=== PATIENT | female | born 1935 | race Caucasian/White ===

== ENCOUNTER 2016-05-04 09:17 | Emergency (ER) | payer OTHER, MEDICARE ==
[~2016-05-04] VITALS: Ht 167.6 cm; Wt 77.1 kg
[~2016-05-04 09:17] MED LIST: ATENOLOL; DIOVAN
[2016-05-04 09:22] VITALS: BP 169/81; PULSE 81; RESP 16; TEMP 98.7; O2SAT 97
--- NOTE | 2016-05-04 09:22 | NUR ---
Patient to ER bed 06 to gown for evaluation. Side rails up.
--- NOTE | 2016-05-04 09:27 | NUR ---
Dr. Cardona at bedside for evaluation
[2016-05-04] MEDS ORDERED: TRIAMCINOLONE ACETONIDE 40 MG/ML IM ONE (09:45)
[2016-05-04] MEDS ORDERED: LIDOCAINE 1% 10 MG/ML, 20 ML MDV INJ ONE (09:45)
--- NOTE | 2016-05-04 10:58 | NUR ---
Medicated for pain per MD orders. Pt tolerated well.
[2016-05-04] MEDS ORDERED: KETOROLAC TROMETHAMINE 30 MG VIAL IM ONE (11:00)
[2016-05-04 11:30] VITALS: BP 141/81; PULSE 88; RESP 16; TEMP 98.2; O2SAT 100
--- NOTE | 2016-05-04 11:30 | NUR ---
Patient given written and verbal discharge instructions and verbalizes understanding. ER MD DR. SONI discussed with patient the results and treatment provided. Patient in stable condition. ID arm band removed. Rx of FLEXERIL given. Patient educated on pain management and to follow up with PMD. Pain Scale 0/10 Opportunity for questions Povided and answered.
== END 2016-05-04 11:30 | disposition home or self-care (01) ==
LOC: SED 09:17
DX: M70.62 Trochanteric bursitis, left hip (principal); M54.42 Lumbago with sciatica, left side; I10 Essential (primary) hypertension; Z86.79 Personal history of other diseases of the circulatory system; Y93.9 Activity, unspecified
CPT/HCPCS: 20610; 72100; 96372; 99284; J1885; J2001; J3301

== ENCOUNTER 2016-06-22 09:12 | Emergency (ER) | payer OTHER, MEDICARE ==
[~2016-06-22] VITALS: Ht 167.6 cm; Wt 77.1 kg
[2016-06-22 09:14] VITALS: BP_SYST 186
--- NOTE | 2016-06-22 09:14 | NUR ---
Placed in room 06. Placed on campus monitor, blood pressure machine and pulse oximeter. To gown for exam. Side rails up. Report given to KYLIE Travis.
--- NOTE | 2016-06-22 09:22 | NUR ---
Dr. Tirado at bedside for evaluation
[2016-06-22] MEDS ORDERED: ATOR10TA68 PO (09:38)
[2016-06-22] MEDS ORDERED: ATEN50TA PO (09:38)
[2016-06-22] MEDS ORDERED: VALS1TAB76 PO (09:38)
--- NOTE | 2016-06-22 09:38 | NUR ---
Medication reconciliation completed with information provided by patient. Any prior medication reconciliation on file was reviewed and corrected.
--- NOTE | 2016-06-22 09:39 | NUR ---
Received Pt in bed 6. Pt c/o generalized weakness, muscle aches, SOB x1 week. Pt stated she has a Hx of HTN and asthma. O2 sat 100% room air. Lung sounds ausculated, lung sounds clear throughout all lobes. Dry hacking cough noted. Pt denies any sputum. Bilateral ankle non pitting edema noted. Pt denies chest pain. Pt stated she has not taken any medications to relieve symptoms.
--- NOTE | 2016-06-22 09:40 | NUR ---
Pt transported to radiology via gurney.
--- NOTE | 2016-06-22 10:02 | NUR ---
Pt back from radiology. Assistenced Pt to the bathroom for a UA collection. Gait steady but weak. Informed Pt to push the call light if Pt needs assitance in the bathroom. pt verbalized understanding.
[2016-06-22 10:08] LABS: BASOPHILS # (AUTO) 0.1 K/uL (0.0-0.2); BASOPHILS % (AUTO) 0.7 % (0.0-2.0); EOSINOPHILS # (AUTO) 0.2 K/uL (0.0-0.4); EOSINOPHILS % (AUTO) 1.7 % (0.0-4.0); LYMPHOCYTES # (AUTO) 0.7 K/uL (1.0-5.5); LYMPHOCYTES % (AUTO) 7.9 % (20.5-51.5); MEAN CORPUSCULAR HEMOGLOBIN 31 pg (27-31); MEAN CORPUSCULAR HGB CONC 33 % (32-36); MEAN CORPUSCULAR VOLUME 92 fL (79.0-98.0); MONOCYTES # (AUTO) 0.8 K/uL (0.0-1.0); MONOCYTES % (AUTO) 8.6 % (1.7-9.3); NEUTROPHILS # (AUTO) 7.5 K/uL (1.8-7.7); NEUTROPHILS % (AUTO) 81.1 % (40.0-70.0); PLATELET COUNT (AUTO) 362 K/uL (130-430); RED BLOOD CELL COUNT(AUTO) 4.56 MIL/uL (4.2-6.2); RED CELL DISTRIBUTION WIDTH 13.2 % (9.0-15.0); WHITE BLOOD COUNT (AUTO) 9.3 K/uL (4.8-10.8)
[2016-06-22 10:10] LABS: INR 1.1 (0.8-1.2); PROTHROMBIN TIME 11.6 SECS (9.5-12.5)
[2016-06-22 10:13] LABS: BILIRUBIN,URINE NEGATIVE (NEGATIVE); BLOOD, URINE NEGATIVE (NEGATIVE); CLARITY/URINE CLEAR (CLEAR); COLOR,URINE YELLOW (YELLOW); GLUCOSE,URINE NEGATIVE (NEGATIVE); KETONES,URINE NEGATIVE (NEGATIVE); LEUKOCYTE ESTERASE ,URINE NEGATIVE (NEGATIVE); NITRITE, URINE NEGATIVE (NEGATIVE); PROTEIN URINE NEGATIVE (NEGATIVE); UROBILINOGEN,URINE 0.2 (0.2-1.0)
[2016-06-22 10:24] LABS: ANION GAP 2 (5-15); CALCIUM 8.9 mg/dL (8.4-11.0); CHLORIDE 93 mmol/L (98-107); CREATININE 0.62 mg/dL (0.55-1.30); GLUCOSE 129 mg/dL (70-99); POTASSIUM 4.2 mmol/L (3.5-5.1); SODIUM SERUM 124 mmol/L (136-145); UREA NITROGEN, BLOOD 8 mg/dL (8-21)
[2016-06-22 10:28] LABS: ALANINE AMINOTRANSFERASE 26 U/L (12-78); ALBUMIN 3.6 g/dL (3.4-4.8); ASPARTATE AMINOTRANSFERASE 20 U/L (10-37); LIPASE 104 U/L (73-393); TOTAL BILIRUBIN 0.5 mg/dL (0.0-1.0); TOTAL PROTEIN, SERUM 6.9 g/dL (6.4-8.3)
--- NOTE | 2016-06-22 10:51 | NUR ---
Dr. Tirado at the bedside discussing plan of care. Currently awaiting new orders.
--- NOTE | 2016-06-22 11:04 | NUR ---
Pt transported to radiology for head [place] via [place].
[2016-06-22] MEDS ORDERED: NS 500 ML IV ONE (11:15)
--- NOTE | 2016-06-22 11:20 | NUR ---
Pt returned from radiology.
--- NOTE | 2016-06-22 11:33 | NUR ---
Dr. Tirado at the bedside discussing plan of care. Currently awaiting new orders.
[2016-06-22] MEDS ORDERED: MAGNESIUM CITRATE 300 ML ORAL SOLUTION PO ONE (12:15)
[2016-06-22 12:20] VITALS: BP_SYST 129
--- NOTE | 2016-06-22 12:20 | NUR ---
Patient given written and verbal discharge instructions and verbalizes understanding. ER MD Dr. Tirado discussed with patient the results and treatment provided. Patient in stable condition. ID arm band removed. IV catheter removed intact and dressing applied, no active bleeding. no Rx given. Patient educated on pain management and to follow up with PMD. Pain Scale 0/10 Opportunity for questions provided and answered.
== END 2016-06-22 12:20 | disposition home or self-care (01) ==
LOC: SED 09:12
DX: I10 Essential (primary) hypertension (principal); R53.1 Weakness; J45.909 Unspecified asthma, uncomplicated; K58.9 Irritable bowel syndrome, unspecified; Z86.73 Personal history of transient ischemic attack (TIA), and cerebral infarction without residual deficits
CPT/HCPCS: 36415; 70450; 71010; 74176; 80053; 81003; 83605; 83690; 84439; 85025; 85610; 87040; 93005; 96360; 99285; J7040

== ENCOUNTER 2018-04-27 17:17 | Emergency (ER) | payer OTHER, MEDICARE ==
[~2018-04-27] VITALS: Ht 167.6 cm; Wt 79.4 kg
[~2018-04-27 17:17] MED LIST changes: +ATEN50TA PO; -ATENOLOL; +ATOR10TA68 PO; -DIOVAN; +VALS1TAB76 PO
[2018-04-27] MEDS ORDERED: NACL 0.9% 1,000 ML IV ONE (17:40)
[2018-04-27 18:00] VITALS: BP_SYST 157
[2018-04-27] MEDS ORDERED: IPRATROPIUM BROM 0.5 MG/2.5 ML VIAL.NEB (ATROVENT) IH ONE (18:45)
[2018-04-27] MEDS ORDERED: methylPREDNISolone SOD SUCC/PF 62.5 MG/ML VIAL IVP ONE (18:45)
[2018-04-27] MEDS ORDERED: ALBUTEROL SULFATE 0.083% 2.5 MG/3 ML VIAL.NEB IH ONE (18:45)
[2018-04-27 19:17] LABS: ANION GAP 5 (5-15); CALCIUM 8.4 mg/dL (8.4-11.0); CHLORIDE 101 mmol/L (98-107); GLUCOSE 110 mg/dL (70-99); POTASSIUM 4.2 mmol/L (3.5-5.1); SODIUM SERUM 135 mmol/L (136-145); UREA NITROGEN, BLOOD 11 mg/dL (8-21); WHITE BLOOD COUNT (AUTO) 7.8 K/uL (4.8-10.8)
[2018-04-27 19:18] LABS: HEMATOCRIT 42.2 % (36-48); LYMPHOCYTES % (AUTO) 12.6 % (20.5-51.5); MEAN CORPUSCULAR HEMOGLOBIN 31 pg (27-31); MEAN CORPUSCULAR HGB CONC 33 % (32-36); MEAN CORPUSCULAR VOLUME 94 fL (79.0-98.0); MONOCYTES % (AUTO) 15.4 % (1.7-9.3); NEUTROPHILS % (AUTO) 67.7 % (40.0-70.0); PLATELET COUNT (AUTO) 271 K/uL (130-430); RED CELL DISTRIBUTION WIDTH 13.2 % (9.0-15.0)
[2018-04-27 19:19] LABS: BASOPHILS # (AUTO) 0.1 K/uL (0.0-0.2); BASOPHILS % (AUTO) 0.8 % (0.0-2.0); EOSINOPHILS # (AUTO) 0.3 K/uL (0.0-0.4); EOSINOPHILS % (AUTO) 3.5 % (0.0-4.0); MONOCYTES # (AUTO) 1.2 K/uL (0.0-1.0); NEUTROPHILS # (AUTO) 5.3 K/uL (1.8-7.7)
[2018-04-27 19:20] LABS: PROTHROMBIN TIME 10.4 SECS (9.5-12.5)
[2018-04-27 19:21] LABS: ALANINE AMINOTRANSFERASE 22 U/L (12-78); ALBUMIN 3.5 g/dL (3.4-4.8); ASPARTATE AMINOTRANSFERASE 18 U/L (10-37); LIPASE 100 U/L (73-393); TOTAL BILIRUBIN 0.4 mg/dL (0.0-1.0)
[2018-04-27 20:15] VITALS: BP_SYST 140
[2018-04-27 20:46] LABS: BILIRUBIN,URINE NEGATIVE (NEGATIVE); BLOOD, URINE NEGATIVE (NEGATIVE); CLARITY/URINE SL HAZY (CLEAR); COLOR,URINE YELLOW (YELLOW); GLUCOSE,URINE NEGATIVE (NEGATIVE); KETONES,URINE NEGATIVE (NEGATIVE); LEUKOCYTE ESTERASE ,URINE NEGATIVE (NEGATIVE); NITRITE, URINE NEGATIVE (NEGATIVE); PH,URINE 7.5 (5.0-8.0); PROTEIN URINE NEGATIVE (NEGATIVE); UROBILINOGEN,URINE 0.2 (0.2-1.0)
== END 2018-04-27 20:15 | disposition home or self-care (01) ==
LOC: SED 17:17
DX: J42 Unspecified chronic bronchitis (principal); R06.02 Shortness of breath; I10 Essential (primary) hypertension; Z86.73 Personal history of transient ischemic attack (TIA), and cerebral infarction without residual deficits; Z90.710 Acquired absence of both cervix and uterus; Z79.899 Other long term (current) drug therapy
CPT/HCPCS: 36415; 71045; 80053; 81003; 82550; 83605; 83690; 84484; 85025; 85610; 85730; 87040; 93005; 94640; 96374; 99284; J2930; J7030; J7613

== ENCOUNTER 2019-07-19 17:35 | Emergency (ER) | payer OTHER, MEDICARE ==
[~2019-07-19] VITALS: Ht 167.6 cm; Wt 81.6 kg
--- NOTE | 2019-07-19 17:38 | NUR ---
Patient to ER bed 3 to gown for evaluation. Side rails up.
[2019-07-19 17:40] VITALS: BP_SYST 165
--- NOTE | 2019-07-19 17:40 | NUR ---
Pt BIB ambulance from home with c/o abdominal pain 07/04 and N/V. Dark red emesis X2 in ER. Denies any other trauma at this time. V/S stable, pt is afebrile. Resting in bed, will continue to monitor.
--- NOTE | 2019-07-19 17:42 | NUR ---
ER at bedside examining patient.
[2019-07-19] MEDS ORDERED: NACL 0.9% 1,000 ML IV ONE (17:45)
--- NOTE | 2019-07-19 17:55 | NUR ---
# 20 gauge angiocath placed to LAC. Use of asceptic technique. Opsite placed over site. Blood return noted. Blood for lab drawn from site. Flushed with 10 cc of normal saline. No evidence of infiltration noted. Patient tolerated well.
--- NOTE | 2019-07-19 18:00 | NUR ---
1L NS bolus infusing as per orders.
--- NOTE | 2019-07-19 18:00 | NUR ---
EKG performed at BS by EMT. Physician given copy of EKG for review.
--- NOTE | 2019-07-19 18:11 | NUR ---
Radiology at bedside performing CXR
[2019-07-19 18:29] LABS: PROTHROMBIN TIME 10.4 SECS (9.5-12.5)
[2019-07-19] MEDS ORDERED: ONDANSETRON HCL 4 MG/2 ML VIAL IVP ONE ×2 (18:30→23:15)
[2019-07-19] MEDS ORDERED: KETOROLAC TROMETHAMINE 30 MG VIAL IVP ONE (18:30)
[2019-07-19 18:37] LABS: HEMATOCRIT 44.9 % (36-48); HEMOGLOBIN 14.8 g/dL (12.0-16.0); RED BLOOD CELL COUNT(AUTO) 4.76 MIL/uL (4.2-6.2); WHITE BLOOD COUNT (AUTO) 10.1 K/uL (4.8-10.8)
[2019-07-19 18:38] LABS: MEAN CORPUSCULAR HEMOGLOBIN 31 pg (27-31); MEAN CORPUSCULAR HGB CONC 33 % (32-36); MEAN CORPUSCULAR VOLUME 94 fL (79.0-98.0); PLATELET COUNT (AUTO) 232 K/uL (130-430); RED CELL DISTRIBUTION WIDTH 13.3 % (9.0-15.0)
[2019-07-19 18:39] LABS: BASOPHILS % (AUTO) 0.3 % (0.0-2.0); EOSINOPHILS % (AUTO) 0.4 % (0.0-4.0); LYMPHOCYTES # (AUTO) 0.8 K/uL (1.0-5.5); LYMPHOCYTES % (AUTO) 7.9 % (20.5-51.5); MONOCYTES # (AUTO) 1.6 K/uL (0.0-1.0); MONOCYTES % (AUTO) 15.5 % (1.7-9.3); NEUTROPHILS # (AUTO) 7.6 K/uL (1.8-7.7); NEUTROPHILS % (AUTO) 75.9 % (40.0-70.0)
[2019-07-19 18:40] LABS: ANION GAP 2 (5-15); CALCIUM 9.4 mg/dL (8.4-11.0); CHLORIDE 102 mmol/L (98-107); CREATININE 0.86 mg/dL (0.55-1.30); GLUCOSE 147 mg/dL (70-99); POTASSIUM 3.9 mmol/L (3.5-5.1); SODIUM SERUM 140 mmol/L (136-145); UREA NITROGEN, BLOOD 14 mg/dL (8-21)
[2019-07-19 18:45] LABS: ALANINE AMINOTRANSFERASE 27 U/L (12-78); ALBUMIN 3.9 g/dL (3.4-4.8); ASPARTATE AMINOTRANSFERASE 15 U/L (10-37); TOTAL BILIRUBIN 0.4 mg/dL (0.0-1.0)
--- NOTE | 2019-07-19 18:46 | NUR ---
Urine collected via straight cath as ordered by . Pt tolerated well
--- NOTE | 2019-07-19 18:46 | NUR ---
[employer] emesis x 2, medicated with zofran and toradol for the abdominal pain.
--- NOTE | 2019-07-19 18:51 | NUR ---
Patient transported to radiology via gurney, accompanied by staff.
[2019-07-19 19:04] LABS: BILIRUBIN,URINE NEGATIVE (NEGATIVE); BLOOD, URINE NEGATIVE (NEGATIVE); CLARITY/URINE CLOUDY (CLEAR); COLOR,URINE YELLOW (YELLOW); GLUCOSE,URINE NEGATIVE (NEGATIVE); KETONES,URINE NEGATIVE (NEGATIVE); LEUKOCYTE ESTERASE ,URINE NEGATIVE (NEGATIVE); NITRITE, URINE NEGATIVE (NEGATIVE); PH,URINE 8.5 (5.0-8.0); PROTEIN URINE TRACE (NEGATIVE); UROBILINOGEN,URINE 0.2 (0.2-1.0)
[2019-07-19] MEDS ORDERED: TRAM50TA2 PO (19:21)
[2019-07-19] MEDS ORDERED: VALS160T2 PO (19:22)
--- NOTE | 2019-07-19 19:24 | NUR ---
med rec completed and updated by information provided by the pt's medical record
[2019-07-19 19:37] LABS: BACTERIA,URINE MODERATE /HPF (None Seen); RBC,URINE 0-3 /HPF (0-3); URINE AMORPHOUS PHOSPHATES 2+ /HPF (None Seen); WBC,URINE 0-3 /HPF (0-3)
--- NOTE | 2019-07-19 20:13 | NUR ---
Patient resting quietly. No acute distress noted. Vital signs within normal range.
--- NOTE | 2019-07-19 20:24 | NUR ---
Dr. Hitchcock speaking to Dr. Allen regarding possible admission.
--- NOTE | 2019-07-19 21:30 | NUR ---
Pt. sleeping at this time and shows no signs of distress at this time. Will continue to monitor.
[2019-07-19] MEDS ORDERED: MORPHINE 2 MG/ML INJ. SYRINGE IVP ONE (21:45)
--- NOTE | 2019-07-19 22:20 | NUR ---
Pt. resting in bed. VSS. Denies nausea and pain at this time. Will continue to monitor.
--- NOTE | 2019-07-19 23:10 | NUR ---
Pt. reports 6/10 bilateral abdominal pain. MD notified. VSS. 02 sat 97% after placing 4L nasal cannula. Will continue to monitor.
--- NOTE | 2019-07-19 23:57 | NUR ---
20G IV placed to the right wrist. IV flushed with 10ml NS with blood return and is patent. Previous 20G IV on the Right AC DC due to to catheter kink. Patient medicated per MD orders.
--- NOTE | 2019-07-20 00:40 | NUR ---
Pt. resting at this time. VS within normal limits. Patient does not appear anxious nor does pt. report pain at this time. Will continue to monitor.
--- NOTE | 2019-07-20 01:45 | NUR ---
Pt. placed in hospital bed to be made more comfortable and is now in Room #6. Pt. asleep at this time. VSS. Will continue to monitor.
--- NOTE | 2019-07-20 02:50 | NUR ---
Patient asleep at this time. VSS. Will continue to monitor.
--- NOTE | 2019-07-20 03:20 | NUR ---
Received report from Roseann RN.
--- NOTE | 2019-07-20 04:01 | NUR ---
Patient asleep on bed, vss, denies pain this time.
--- NOTE | 2019-07-20 05:09 | NUR ---
Patient asleep on bed, vss, denies pain this time, side rails up.
--- NOTE | 2019-07-20 05:58 | NUR ---
Patient pain, pain rate 10/04, Dr. Hitchcock notified.
[2019-07-20] MEDS ORDERED: ONDANSETRON HCL 4 MG/2 ML VIAL IVP ONE (06:00)
[2019-07-20] MEDS ORDERED: MORPHINE 4 MG/ML INJ. SYRINGE IVP ONE (06:00)
--- NOTE | 2019-07-20 07:00 | NUR ---
Assumed care of patient, report received from KYLIE Jefferson. Pt currently resting in bed, will continue to monitor.
[2019-07-20] MEDS ORDERED: LEVOFLOXACIN 500 MG/D5W 100 ML IV ONE (08:15)
[2019-07-20] MEDS ORDERED: MAG HYDROX/AL HYDROX/SIMETH 30 ML, DICYCLOMINE HCL 20 MG, LIDOCAINE VISCOUS 2% 15ML (PO... PO ONE ×3 (08:30)
[2019-07-20] MEDS ORDERED: LIDOCAINE 2%, 20 ML MDV INJ ONE (08:30)
[2019-07-20] MEDS ORDERED: cefTRIAXone 1 GM VIAL IM ONE (08:30)
--- NOTE | 2019-07-20 08:45 | NUR ---
GI cocktail given PO as per ordered, Pt tolerated well.
--- NOTE | 2019-07-20 08:45 | NUR ---
Recephin given IM as per MD order
[2019-07-20] MEDS ORDERED: DICYCLOMINE HCL 10 MG/5 ML SOLUTION ONE (08:53)
[2019-07-20 09:12] VITALS: BP_SYST 152
--- NOTE | 2019-07-20 09:12 | NUR ---
Patient given written and verbal discharge instructions and verbalizes understanding. ER MD discussed with patient the results and treatment provided. Patient in stable condition. ID arm band removed. IV catheter removed intact and dressing applied, no active bleeding. Rx of Bactrim given. Patient educated on pain management and to follow up with PMD. Pain Scale 0/10. Opportunity for questions provided and answered. Medication side effect fact sheet provided.
--- NOTE | 2019-07-20 09:31 | NUR ---
Pt transfered to SNF, report called to Jono.
== END 2019-07-20 09:12 | disposition home or self-care (01) ==
LOC: SED 17:35
DX: K44.9 Diaphragmatic hernia without obstruction or gangrene (principal); R11.10 Vomiting, unspecified; I10 Essential (primary) hypertension; J45.909 Unspecified asthma, uncomplicated
CPT/HCPCS: 36415; 71045; 74176; 80053; 81000; 83605; 84484; 85025; 85610; 85730; 87040; 87086; 93005; 96361; 96372; 96374; 96375; 96376 ×2; 99285; J0696; J1885; J2001 ×2; J2270 ×2; J2405 ×2